=== PATIENT | male | born 1965 | race Caucasian/White ===

== ENCOUNTER 2021-04-15 21:08 | Emergency (ER) | payer OTHER ==
[~2021-04-15] VITALS: Ht 177.8 cm; Wt 127.0 kg
[2021-04-15] MEDS ORDERED: CLINDAMYCIN HC300 MG PO (21:34)
== END 2021-04-15 21:43 | disposition home or self-care (01) ==
LOC: ED 21:08
DX: L03.116 Cellulitis of left lower limb (principal)